=== PATIENT | female | born 1940 | race Caucasian/White ===

== ENCOUNTER 2023-12-08 18:56 | Inpatient (IN) | payer MEDICARE, BC ==
[~2023-12-08] VITALS: Ht 160 cm; Wt 54.4 kg
[2023-12-08] MEDS ORDERED: NS 500 ML IV ONE (19:15)
[2023-12-08 19:20] LABS: BASO % 0.3 % (0.0-2.0); EOS # 0.2 K/mm3 (0.0-0.7); EOS % 2.5 % (0.0-4.0); GRAN # 4.8 K/mm3 (1.4-6.5); GRAN % 52.6 % (42.2-75.2); HEMOGLOBIN 12.2 g/dl (12.5-16.0); LYMPH # 3.1 K/mm3 (1.2-3.4); LYMPH % 33.7 % (20.0-51.0); MEAN CELL VOLUME 91 fl (80.0-100.0); MEAN CORPUSCULAR HEMOGLOBIN 30 pg (27-31); MEAN CORPUSCULAR HGB CONC 33 g/dl (33.0-37.0); MEAN PLATELET VOLUME 9.8 fl (7.4-10.4); MONO % 10.5 % (1.7-9.3); PLATELET COUNT 337 K/mm3 (130-400); RED BLOOD COUNT 4.07 M/mm3 (4.10-5.30); REDCELL DISTRIBUTION WIDTH-CV 12.4 % (11.5-14.5)
[2023-12-08 19:21] LABS: HEMATOCRIT 36.9 % (37.0-47.0)
[2023-12-08 19:40] LABS: ALBUMIN 3.6 g/dL (3.4-4.8); BILIRUBIN,TOTAL 0.2 mg/dL (0.2-1.2); CALCIUM 8.8 mg/dL (8.4-10.2); CREATININE, serum 1.35 mg/dL (0.57-1.11); POTASSIUM 4.7 mEq/L (3.5-4.5); TOTAL PROTEIN 6.9 g/dl (6.2-8.1)
[2023-12-08] MEDS ORDERED: Morphine 4 MG/ML VIAL IV ONE ×2 (20:15→20:45)
[2023-12-08] MEDS ORDERED: Ondansetron 4 MG/2 ML VIAL IV ONE (20:15)
[2023-12-08] MEDS ORDERED: PERCOCET 325 MG1 TA2 PO (20:38)
[2023-12-08] MEDS ORDERED: HYDROcodone/Acetaminophen 7.5-325 MG TAB PO PRN (22:30)
[2023-12-08] MEDS ORDERED: Morphine 4 MG/ML VIAL IV PRN (22:30)
[2023-12-08] MEDS ORDERED: Ondansetron 4 MG/2 ML VIAL IV PRN (22:30)
[2023-12-08] MEDS ORDERED: LR 1,000 ML IV SCH (22:30)
[2023-12-08] MEDS ORDERED: Acetaminophen 325 MG TAB PO PRN (22:30)
[2023-12-08] MEDS ORDERED: TOPROL XL 50MG50 MG PO ×2 (22:59)
[2023-12-08] MEDS ORDERED: APRESOLINE50 MG PO (23:00)
[2023-12-08] MEDS ORDERED: NORCO 325 MG-101 TAB PO (23:01)
[2023-12-08] MEDS ORDERED: NORVASC 10MG10 MG PO (23:02)
[2023-12-08] MEDS ORDERED: ULTRAM ER300 MG PO (23:02)
[2023-12-08] MEDS ORDERED: ALDACTONE 25MG25 M1 PO (23:03)
[2023-12-08] MEDS ORDERED: ASPIRIN 81M81 MG/TA2 PO (23:03)
[2023-12-08] MEDS ORDERED: IRON BISGLYCINA28 MG PO (23:04)
[2023-12-08] MEDS ORDERED: MASON NATURAL2000 IU PO (23:05)
[2023-12-08] MEDS ORDERED: ZYRTEC10MGSGL PO (23:09)
[2023-12-08] MEDS ORDERED: BASAGLAR K100 UNIT/1 SQ (23:09)
[2023-12-08 23:59] VITALS: BP 168/84; PULSE 72; TEMP 97.4
[2023-12-09] VITALS (18 sets, daily range): BP systolic 114–175; BP diastolic 63–81; PULSE 72–85; TEMP 97.9–98.5
[2023-12-09] MEDS ORDERED: ANTIVERT 12.512.5 MG PO (00:28)
--- NOTE | 2023-12-09 00:51 | NUR ---
PT ARRIVED TO FLOOR AT THIS TIME VIA STRETCHER. USED SLIDEBOARD TO MOVE PT TO HOSPITAL BED. PT IN 10 PAIN. PRN NORCO GIVEN. PT C/O SHOOTING PAIN FROM RIGHT KNEE TO RIGH GROIN. ICE PACK APPLIED TO GROIN. MED REC COMPLETE. SAHIL FERNANDEZ, AT BEDSIDE UPON ADMISSION AND LEFT FOR THE NIGHT.
--- NOTE | 2023-12-09 01:06 | NUR ---
Patient heard crying out in pain at nurses station. This nurse to room-patient rating pain 8/10 on pain scale to right hip-described as constant ache with intermittent sharp stabs. Morphine given per dr order. Will monitor.
[2023-12-09] MEDS ORDERED: HYDROmorphone 0.5 MG/0.5 ML SYRINGE IV ONE (01:45)
--- NOTE | 2023-12-09 06:40 | NUR ---
awake resting in bed, bedside shift report received from NAVIN Duffy, assisted her with rolling to her left side, c/o pain during moving but then rests with eyes closed
--- NOTE | 2023-12-09 07:12 | NUR ---
KAELB Hayes in to visit with patient
--- NOTE | 2023-12-09 07:17 | NUR ---
c/o pain 6-08/16, medicated with morphine 2mg slow IV and also c/o nausea and given zofran 4mg slow IV, full assessment completed, see interventions for further info, assisted her with moving back onto her back,
--- NOTE | 2023-12-09 08:44 | NUR ---
was dozing when entered room and then moaned, explained to her I had talked to Alison and she was going to be in probably around 10, verbalizes understanding
[2023-12-09] MEDS ORDERED: Spironolactone 25 MG TAB PO SCH (09:34)
[2023-12-09] MEDS ORDERED: traMADol 50 MG TAB PO SCH (09:37)
[2023-12-09] MEDS ORDERED: Insulin Lispro (HumaLOG) SQ SCH (09:38)
--- NOTE | 2023-12-09 09:44 | NUR ---
Dr Elias in to see patient and now radiology in to get chest xray
[2023-12-09] MEDS ORDERED: OXYCODONE 5 MG PO (09:45)
[2023-12-09] MEDS ORDERED: Q4H PRN PO (09:45)
[2023-12-09] MEDS ORDERED: hydrALAZINE 20 MG/ML 1 ML VIAL IV PRN ×2 (09:45→10:30)
--- NOTE | 2023-12-09 10:00 | NUR ---
resting in bed, rests quietly and then has spasm and c/os pain, medicated with ultram 300mg per her home dose and other am meds given,
--- NOTE | 2023-12-09 10:29 | NUR ---
spoke with surgery and surgery is scheduled for around 1300, daughter Alison notified of this
[2023-12-09] MEDS ORDERED: droPERidol 2.5 MG/ML 2 ML VIAL IV PRN (10:30)
[2023-12-09] MEDS ORDERED: Ondansetron 4 MG/2 ML VIAL IV PRN (10:30)
[2023-12-09] MEDS ORDERED: HYDROmorphone 1 MG/1 ML SYRINGE [PACU/SDC ONLY] IV PRN (10:30)
[2023-12-09] MEDS ORDERED: Meperidine 50 MG/ML 1 ML VIAL IV PRN (10:30)
[2023-12-09] MEDS ORDERED: LR 1,000 ML IV SCH (10:30)
[2023-12-09] MEDS ORDERED: fentaNYL 50 MCG/ML 1 ML SYRINGE/VIAL [PACU/SDC ONLY] IV PRN ×2 (10:30)
--- NOTE | 2023-12-09 10:55 | NUR ---
continues to c/o spasms intermittently to right leg, informed she would go to surgery around 1230 and verbalizes understanding, UA collected and to the lab
[2023-12-09 11:00] LABS: COLLECTION METHOD CATHETER
[2023-12-09 11:08] LABS: URINE APPEARANCE TURBID (CLEAR/HAZY); URINE BLOOD 1+ (NEGATIVE); URINE COLOR YELLOW (YELLOW); URINE GLUCOSE 2+ (NEGATIVE); URINE KETONE 1+ (NEGATIVE); URINE NITRATE NEGATIVE (NEGATIVE); URINE PROTEIN(semi-quant) 1+ (NEGATIVE); URINE UROBILINOGEN 0.2 E.U/dL (0.2-1.0)
[2023-12-09] MEDS ORDERED: cefTRIAXone 1 G in Water For Injection,Sterile 10 ML IV ONE (12:00)
--- NOTE | 2023-12-09 12:11 | NUR ---
daughter here, consents signed for surgery, blood sugar 165
--- NOTE | 2023-12-09 12:35 | NUR ---
to surgery per bed
[2023-12-09] MEDS ORDERED: fentaNYL 50 MCG/ML 2 ML VIAL ONE (12:41)
[2023-12-09] MEDS ORDERED: Ondansetron 4 MG/2 ML VIAL ONE (12:42)
[2023-12-09] MEDS ORDERED: NS 10 ML IV ONE (12:42)
[2023-12-09] MEDS ORDERED: dexAMETHasone 10 MG/ML VIAL ONE (12:42)
[2023-12-09] MEDS ORDERED: Lidocaine PF 2% (20 MG/ML) 5 ML VIAL ONE (12:44)
--- NOTE | 2023-12-09 13:10 | NUR ---
Mali in the lab notified of the need for a culture on the urine sent down this morning
[2023-12-09] MEDS ORDERED: Topical Skin Adhesive 1 EACH (1 ML) TOP ONE (13:47)
--- NOTE | 2023-12-09 13:57 | NUR ---
foot worker and SW Student met with patient to discuss discharge planning. Patient lives in [place] but is currently visiting her daughter, Alison, P# [phone]. PCP is Theo Bunch APRN in [place], Pharmacy is [facility] in [place] would be the best pharmacy for any medications after discharge. No issues affording medications. INsurance is Medicare A and B and BCBS. DPOA-HC is Magui (daughter) P# [phone] and secondary Alison P# [phone]. Patient reports she uses a quad cane at baseline and is not normally on oxygen. Patient reports to be independent with ADLS and her family transports her to and from appointments as she is blind in one eye. SW discussed the likelihood that she would need rehab prior to returning to [place]. Patient understood and reported she was supposed to return on next week but would see if her daughter can work on moving that ticket for her. SW provided the Medicare.gov list of SNF options and discussed SNF, Swing Bed and IPR. Patient may be interested in IPR if she can tolerate the 3 hours a day but otherwise she was not familiar with the SNF in [facility]. SW explained she can discuss with Alison whom lives in [place]. Patient was in agreement. SW contacted Alison and discussed SNF options and the Medicare.gov star ratings. Alison stated their first choice would be [facility] and second would be [facility]. SW discussed IPR as another option pending how she does with PT and OT after surgery. Alison was also in agreement with IPR if she is a good candidate. LORENE secure emailed SNF referral to [facility]. Discharge plan: SNF or IPR pending PT/OT
[2023-12-09] MEDS ORDERED: Naloxone 0.4 MG/ML VIAL IV PRN (14:30)
[2023-12-09] MEDS ORDERED: Magnes Hydrox (MOM) 80 MG/ML 30 ML CUP PO PRN (14:30)
[2023-12-09] MEDS ORDERED: oxyCODONE 5 MG TAB PO PRN (14:30)
--- NOTE | 2023-12-09 15:35 | NUR ---
returned to room 325 per bed awake and alert but sleepy, c/o pain at intervals but then dozes back to sleep, O2 on at 4L and O2 sat 94%, simons cath remains intact draining clear yellow urine, dressing to right h ip with 2 small sites with gauze and tegaderm,
--- NOTE | 2023-12-09 15:58 | NUR ---
bog worker was notified [facility] is able to accept patient. [facility] is reviewing.
--- NOTE | 2023-12-09 16:15 | NUR ---
attempted to take temp and was unable to obtain at this time
--- NOTE | 2023-12-09 16:45 | NUR ---
awake now and talking with her daughter and a friend, O2 sat is 100% on 4L O2 with oxymask, changed to cannula and changed to 3L, will monitor
[2023-12-09 17:15] LABS: CALCIUM 8.9 mg/dL (8.4-10.2); CREATININE, serum 0.92 mg/dL (0.57-1.11); POTASSIUM 4.4 mEq/L (3.5-4.5)
[2023-12-09] MEDS ORDERED: CENTRUM SILVER1 TA2 PO (17:36)
[2023-12-09] MEDS ORDERED: LUTEIN20 M1 PO (17:36)
[2023-12-09] MEDS ORDERED: BERBERINE500 MG PO (17:39)
[2023-12-09] MEDS ORDERED: CHOLESTEROL CARE PO (17:40)
--- NOTE | 2023-12-09 17:41 | NUR ---
had applesauce and tolerated well, will offer something more to eat
--- NOTE | 2023-12-09 18:15 | NUR ---
O2 sat is 97% on 3L/NC O2 down to 2L, supper is here and assisted her to sitting up to eat
--- NOTE | 2023-12-09 19:01 | NUR ---
bedside shift report givn to JAIDEN Osborn
[2023-12-09] MEDS ORDERED: Sennosides/Docusate 8.6-50 MG TAB PO SCH (21:00)
[2023-12-09] MEDS ORDERED: amLODIPine 10 MG TAB PO SCH (21:00)
[2023-12-10] VITALS (13 sets, daily range): BP systolic 125–172; BP diastolic 57–84; PULSE 59–74; TEMP 97.6–98.2
[2023-12-10] MEDS ORDERED: ceFAZolin 1 G in Water For Injection,Sterile 10 ML IV SCH (00:45)
[2023-12-10] MEDS ORDERED: Dextrose 50% Water 25 GM/50 ML SYRINGE IV PRN (07:15)
[2023-12-10] MEDS ORDERED: Glucagon 1 MG VIAL IM PRN (07:15)
[2023-12-10] MEDS ORDERED: Dextrose (Glucose) 15 GM (4 x 3.75 GM) Chewable TABLET PACK PO PRN (07:15)
[2023-12-10 08:12] LABS: BASO % 0.1 % (0.0-2.0); EOS % 0.1 % (0.0-4.0); GRAN % 86.8 % (42.2-75.2); LYMPH % 6.7 % (20.0-51.0); MEAN CELL VOLUME 90 fl (80.0-100.0); MEAN CORPUSCULAR HGB CONC 33 g/dl (33.0-37.0); MEAN PLATELET VOLUME 10.6 fl (7.4-10.4); MONO # 0.9 K/mm3 (0.1-0.6); MONO % 5.8 % (1.7-9.3); RED BLOOD COUNT 3.27 M/mm3 (4.10-5.30); REDCELL DISTRIBUTION WIDTH-CV 12.9 % (11.5-14.5)
[2023-12-10 08:14] LABS: HEMATOCRIT 29.3 % (37.0-47.0); HEMOGLOBIN 9.7 g/dl (12.5-16.0); MEAN CORPUSCULAR HEMOGLOBIN 30 pg (27-31); PLATELET COUNT 204 K/mm3 (130-400)
[2023-12-10] MEDS ORDERED: tiZANidine 4 MG TAB PO ONE (08:15)
[2023-12-10 08:31] LABS: CALCIUM 8.6 mg/dL (8.4-10.2); CREATININE, serum 0.93 mg/dL (0.57-1.11); POTASSIUM 5.6 mEq/L (3.5-4.5)
--- NOTE | 2023-12-10 08:45 | NUR ---
Patient called out in pain. 11/16. Difficult lab draw. Patient has right groin pain with shooting pain. Ice pack provided. [facility] and made aware. Orders obtained. Medications as ordered with water and applesauce. Minimal appetite. Denies currect nausea, but concerned she may have nausea. TEDs and SCDs. Gonzalez to DD. Hip dressing CDI. offered elevation, but refused.
[2023-12-10] MEDS ORDERED: Ascorbic Acid 500 MG TAB PO SCH (09:00)
[2023-12-10] MEDS ORDERED: Cholecalciferol (Vit D3) 25 MCG (1,000 Units) TAB PO SCH (09:00)
[2023-12-10] MEDS ORDERED: Calcium Carbonate 500 MG TAB PO SCH (09:00)
[2023-12-10] MEDS ORDERED: fentaNYL 25 MCG 72 HR PATCH TD SCH (09:30)
[2023-12-10] MEDS ORDERED: traMADol 50 MG TAB PO SCH (09:30)
[2023-12-10] MEDS ORDERED: Polyethylene Glycol 3350 17 GM PDS PO SCH (09:39)
[2023-12-10] MEDS ORDERED: Acetaminophen 500 MG TAB PO SCH (09:45)
--- NOTE | 2023-12-10 09:45 | NUR ---
Jennifer with [facility] team rounded. Plan of care reviewed. Therapy rounded. Patient repostioned in bed. Mepiplex to coccyx, reviewed the importance of repostioning and activity to prevent skin breakdown. Ultram, & tylenol as scheduled. Reviewed patient ultram dosing and home dose with pharmacy and Jennifer correction made. Patient is rating pain a 7/10 now, after roxicodone. CENTRAL SUPPLY CLERK assisting with hygine. PO intake encouraged. High fall risk protocol followed
--- NOTE | 2023-12-10 10:57 | NUR ---
Patient sleeping soundly, arousable. Reports pain down to a six of 10. Falls asleep easy.
[2023-12-10] MEDS ORDERED: Multivitamin TAB PO SCH (12:00)
[2023-12-10] MEDS ORDERED: cefTRIAXone 1 G in Water For Injection,Sterile 10 ML IV SCH (12:30)
--- NOTE | 2023-12-10 13:20 | NUR ---
Data: Spiritual care visit attempted during Support Assistant rounds. Patient was sleeping in darkened room. Assessment: None at this time. Plan of Care: Chaplains will remain available as needed/requested while Patient is admitted to this hospital.
--- NOTE | 2023-12-10 14:40 | NUR ---
SW checked on [facility] on referral for SNF they are pending acceptance due to non PCP in the area and their unable to continue to provide. [facility]- informed SW that they could accept patient, SW will update patient and daughter at this time.
[2023-12-10] MEDS ORDERED: tiZANidine 4 MG TAB PO PRN (16:45)
--- NOTE | 2023-12-10 16:55 | NUR ---
Patient requesting muscle relanant again, Jennifer Anderson called & order obtained, patient reports pain increasing again. Medications as ordered. Dinner tray ordered. daughter at bedside.
--- NOTE | 2023-12-10 18:47 | NUR ---
Patient sleeping with daughter at bedside. bedside report to Irena
[2023-12-11] VITALS (12 sets, daily range): BP systolic 98–162; BP diastolic 60–72; PULSE 56–70; TEMP 97.9–98.5
--- NOTE | 2023-12-11 05:15 | NUR ---
Patient care, medication administration and nursing documentation occurred during a Daylight Savings Time Change. 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 pt CONTINUES WITH NEED FOR PAIN CONTROL. pt GIVEN ROXICODONE, ZANAFLEX, SCHEDULED TRAMADOL AND TYLENOL, HOWEVER CONTINUES TO COMPLAIN OF GROIN AND RLE PAIN. pt DENIED CHEST PAIN, PALPITATIONS, SOB, N,V,D OR DIZZINESS. SURGICAL SITE CDI. pt EXPRESSED NO ADDITIONAL QUESTIONS OR CONCERNS AT THIS TIME. FALL PRECAUTIONS IN PLACE. BED ALARM ON. CALL LIGHT WITHIN REACH.
[2023-12-11 05:58] LABS: HEMATOCRIT 26.1 % (37.0-47.0); HEMOGLOBIN 8.7 g/dl (12.5-16.0)
--- NOTE | 2023-12-11 07:19 | NUR ---
Patient care, medication administration and nursing documentation occurred during a Daylight Savings Time Change. 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 pt CONTINUES WITH NEED FOR PAIN CONTROL. pt GIVEN ROXICODONE, ZANAFLEX, SCHEDULED TRAMADOL AND TYLENOL, HOWEVER CONTINUES TO COMPLAIN OF GROIN AND RLE PAIN. pt DENIED CHEST PAIN, PALPITATIONS, SOB, N,V,D OR DIZZINESS. SURGICAL SITE CDI. pt EXPRESSED NO ADDITIONAL QUESTIONS OR CONCERNS AT THIS TIME. FALL PRECAUTIONS IN PLACE. BED ALARM ON. CALL LIGHT WITHIN REACH.
[2023-12-11 07:51] LABS: BASO % 0.3 % (0.0-2.0); EOS # 0.1 K/mm3 (0.0-0.7); EOS % 1.3 % (0.0-4.0); GRAN # 7.2 K/mm3 (1.4-6.5); GRAN % 74.7 % (42.2-75.2); LYMPH # 1.5 K/mm3 (1.2-3.4); LYMPH % 15.3 % (20.0-51.0); MEAN CELL VOLUME 91 fl (80.0-100.0); MEAN CORPUSCULAR HGB CONC 33 g/dl (33.0-37.0); MEAN PLATELET VOLUME 9.9 fl (7.4-10.4); MONO # 0.8 K/mm3 (0.1-0.6); PLATELET COUNT 249 K/mm3 (130-400); RED BLOOD COUNT 3.22 M/mm3 (4.10-5.30); REDCELL DISTRIBUTION WIDTH-CV 13.1 % (11.5-14.5)
[2023-12-11 07:54] LABS: HEMATOCRIT 29.3 % (37.0-47.0); HEMOGLOBIN 9.6 g/dl (12.5-16.0); MEAN CORPUSCULAR HEMOGLOBIN 30 pg (27-31)
[2023-12-11 08:03] LABS: CALCIUM 8.7 mg/dL (8.4-10.2); CREATININE, serum 0.96 mg/dL (0.57-1.11); POTASSIUM 3.8 mEq/L (3.5-4.5)
--- NOTE | 2023-12-11 10:04 | NUR ---
PT SITTING UP IN BED. AAOX4. HEAD TO TOE ASSESSMENT COMPLETED. MORNING MEDS GIVEN. PT REPORTS RIGHT GROIN PAIN, PAIN MEDS GIVEN. ICE APPLIED TO R KNEE. ENCOURAGED PT FOR MOVEMENT TODAY AND GOAL TO GET UP INTO CHAIR. BED IN LOWEST POSITION. NO SKID SOCKS ON. CALL LIGHT IN REACH.
[2023-12-11] MEDS ORDERED: Cefepime 1 G in Water For Injection,Sterile 10 ML IV SCH (11:30)
--- NOTE | 2023-12-11 20:01 | NUR ---
Patient assessed at this time, see shift assessment, A/Ox4, with INT infusing well on left AC, with arm sling on, dressing to right hip, clean, dry and intact, JULIO's on, refused SCD's at this time, received report from [facility] that she got up the first time from the bed to the chair today, reports spasm, tizanidine given, denies further needs, call light and personal items within reach, fall precautions in place, will continue to monitor.
--- NOTE | 2023-12-11 23:00 | NUR ---
Patient refused JULIO's and ICE pack at this time, reports pain to right hip, PS of 8/10, medicated with oxycodone.
[2023-12-12] VITALS (8 sets, daily range): BP systolic 129–166; BP diastolic 64–69; PULSE 62–70; TEMP 98.3–98.6
--- NOTE | 2023-12-12 01:30 | NUR ---
This nurse was informed by the RT that patient's oxygen dipped down to 80's and patient was put on oxygen at 3.5LPM at this time.
[2023-12-12 05:45] LABS: BASO % 0.3 % (0.0-2.0); EOS # 0.3 K/mm3 (0.0-0.7); EOS % 3.5 % (0.0-4.0); GRAN # 5.9 K/mm3 (1.4-6.5); GRAN % 67.6 % (42.2-75.2); LYMPH # 1.6 K/mm3 (1.2-3.4); LYMPH % 18.8 % (20.0-51.0); MEAN CELL VOLUME 89 fl (80.0-100.0); MEAN CORPUSCULAR HGB CONC 33 g/dl (33.0-37.0); MONO # 0.8 K/mm3 (0.1-0.6); MONO % 9.3 % (1.7-9.3); PLATELET COUNT 217 K/mm3 (130-400); RED BLOOD COUNT 2.91 M/mm3 (4.10-5.30); REDCELL DISTRIBUTION WIDTH-CV 12.7 % (11.5-14.5)
[2023-12-12 06:04] LABS: HEMATOCRIT 25.9 % (37.0-47.0); HEMOGLOBIN 8.6 g/dl (12.5-16.0); MEAN CORPUSCULAR HEMOGLOBIN 30 pg (27-31)
[2023-12-12 06:06] LABS: CALCIUM 7.9 mg/dL (8.4-10.2); CREATININE, serum 0.94 mg/dL (0.57-1.11); POTASSIUM 3.8 mEq/L (3.5-4.5)
--- NOTE | 2023-12-12 09:39 | NUR ---
Pt sitting up in the chair. Pt appears to be comfortable. She is rating her pain 9 10. States that it is almost the worst pain ever felt. Pt does have right arm in sling. Pt does complain that it is not on right. It was on correctly this am when I was in room with PT getting her in the chair. Sling appears to be on correctly now as well. I stated that I could tighten it some, but pt refused. She stated that would only choke her although it is not on her neck. Right leg with incision to right hip, gauze and tegaderm CDI. I did place ice pack on her hip, but pt states that her right knee is bothering her more. Pt is also refusing her [place] hose. Call light within reach and chair alarm on
[2023-12-12] MEDS ORDERED: ASPI325T6 PO (10:23)
[2023-12-12] MEDS ORDERED: OSCAL 500 TAB500 MG PO (10:23)
[2023-12-12] MEDS ORDERED: TYLENOL 500MG500 MG PO (10:23)
[2023-12-12] MEDS ORDERED: VITAMIN C500 MG PO (10:24)
[2023-12-12] MEDS ORDERED: Fosfomycin 3 G PACKET PO SCH (10:30)
[2023-12-12] MEDS ORDERED: MONUROL 3 GM3 G/PKT PO (10:33)
[2023-12-12] MEDS ORDERED: ZANAFLEX 4MG TAB4 MG PO (10:34)
[2023-12-12] MEDS ORDERED: MIRALAX510G PO (10:36)
[2023-12-12] MEDS ORDERED: SENNA-S 50 MG-81 TAB PO (10:36)
[2023-12-12] MEDS ORDERED: ROXICODONE 55 MG/TAB PO (11:23)
[2023-12-12] MEDS ORDERED: ULTRAM ER300 MG PO (11:23)
--- NOTE | 2023-12-12 12:34 | NUR ---
Belt Back Operator faxed updates to both [facility] and [facility]. Leanna at [facility] responded and unfortunately they could not accept patient. LORENE contacted [facility] who advised he can accept today. LORENE met with patient to present and review IM. Patient verbalized understanding and gave verbal consent as signature as she could not physically sign with her arm in a sling. SW placed form in chart and provided copy to patient. Patient requested SW call her daughter, Alison to discuss accepting facility. LORENE contacted Alison and advised [facility] declined, however [facility] could accept today. Alison is agreeable to this. LORENE sent orders to Devon at [facility] and transport time was set for 1500. LORENE provided this time to Alison. Discharge Plan: [facility] SNF
--- NOTE | 2023-12-12 15:38 | NUR ---
Report called to [facility] and [facility]. Was told transportation would be here around 1500. Pts daughter is here at this time. INT removed from left AC. Pt is dressed and ready for transfer
--- NOTE | 2023-12-12 15:56 | NUR ---
Transportation here to get pt. Pts daughter is following them over to [facility]
[2023-12-13] MEDS ORDERED: fentaNYL Patch Removal/Drugbuster TD SCH (09:30)
== END 2023-12-12 16:02 | DRG 480 ==
LOC: COL.ER 18:56 → SURG 22:17
PROVIDERS: Internal Medicine; Orthopaedic Surgery; Personal Emergency Response Attendant; Physician Assistant; ADMIT Internal Medicine
PROC: 0QH636Z Insertion of Intramedullary Internal Fixation Device into Right Upper Femur, Percutaneous Approach (ICD-10-PCS; principal; 2023-12-09 13:30)
DX: S72.141A Displaced intertrochanteric fracture of right femur, initial encounter for closed fracture (principal); J96.01 Acute respiratory failure with hypoxia; N39.0 Urinary tract infection, site not specified; S42.301A Unspecified fracture of shaft of humerus, right arm, initial encounter for closed fracture; W18.30XA Fall on same level, unspecified, initial encounter; Z96.652 Presence of left artificial knee joint; I10 Essential (primary) hypertension; E11.9 Type 2 diabetes mellitus without complications; G89.29 Other chronic pain; Y93.9 Activity, unspecified; D64.9 Anemia, unspecified; D72.829 Elevated white blood cell count, unspecified; E87.5 Hyperkalemia; Q89.9 Congenital malformation, unspecified; Z86.79 Personal history of other diseases of the circulatory system
CPT/HCPCS: A4314; A9284; C1713; J0690; J0692; J0696; J1100; J1171; J1815; J2270; J2405; J2704; J2795; J3010; J7040; J7120